=== PATIENT | female | born 1960 | race Caucasian/White ===

== ENCOUNTER 2020-02-19 12:21 | Inpatient (IN) ==
[2020-02-19] MEDS ORDERED: Ondansetron 4 MG/2 ML VIAL IVP ONE (12:27)
[2020-02-19 12:55] LABS: Basophils % 0.3 %; Eosinophils % 0.3 %; Hematocrit 36.6 % (35.3-44.9); Hemoglobin 12.8 g/dL (11.5-15.4); Immature Granulocytes % 0.3 % (0-4); Lymphocytes # 1.1 K/mcL (0.6-4.6); Lymphocytes % 11.7 %; Mean Corpuscular Hemoglobin 34.3 pg (28.0-33.3); Mean Corpuscular Volume 98.1 fL (83.0-100.0); Mean Platelet Volume 10.6 fL (9.4-12.4); Monocytes # 0.6 K/mcL (0.0-1.3); Monocytes % 6.6 %; Neutrophils # 7.6 K/mcL (1.6-8.9); Platelet Count 181 K/mcL (140-400); Red Blood Count 3.73 M/mcL (3.82-4.97); Red Cell Distribution Width 11.7 % (11.5-14.5); Segmented Neutrophils % 80.8 %; White Blood Count 9.4 K/mcL (4.3-11.1)
[2020-02-19 13:19] LABS: BUN/Creatinine Ratio 8 (6-26); Blood Urea Nitrogen 3 mg/dL (6-20); Calcium 8.4 mg/dL (8.6-10.3); Carbon Dioxide 24 mEq/L (23-29); Chloride 85 mEq/L (98-107); Glucose 107 mg/dL (70-105); Osmolality,Calculated 241 (280-300); Potassium 4.5 mEq/L (3.5-5.1); Sodium 117 mEq/L (136-145); eGFR For African Americans > 60 (> 60); eGFR For Non-African Americans > 60 (> 60)
[2020-02-19] MEDS ORDERED: *HR* HYDROmorphone (PF) 1 MG/ML SYRINGE IVP ONE (13:46)
[2020-02-19 13:50] LABS: Bilirubin,Urine Negative (Negative); Blood,Urine Negative (Negative); Clarity,Urine Cloudy (Clear); Color,Urine Yellow (Yellow); Glucose,Urine (UA) Normal (Normal); Ketones,Urine 15 mg/dL (Negative); Leukocyte Esterase,Urine Negative (Negative); Nitrite,Urine Negative (Negative); Protein,Urine Negative (Neg-Trace); Specific Gravity,Urine 1.009 (1.010-1.025); Urobilinogen,Urine Normal (Normal)
[2020-02-19 13:52] LABS: Bacteria,Urine None Seen per hpf (None-Few); Hyaline Casts,Urine None Seen per lpf (None-Few); RBC,Urine 0-3 per hpf (0-3); Squamous Epithelial Cell,Urine Moderate per lpf (None-Few); WBC,Urine 0-3 per hpf (0-3)
[2020-02-19 14:12] LABS: Sodium, Urine 23.5 mEq/L
[2020-02-19] MEDS ORDERED: Naloxone 0.4 MG/ML INJ IVP PRN (14:24)
[2020-02-19] MEDS ORDERED: Dextrose Gel 15 GM/37.5 ML TUBE PO PRN ×2 (14:28)
[2020-02-19] MEDS ORDERED: D5% in Water 1,000 ML IVC PRN (14:28)
[2020-02-19] MEDS ORDERED: *HR* Dextrose 50 % in Water (Syg) 50 ML SYRINGE IVP PRN (14:28)
[2020-02-19] MEDS ORDERED: 0.9 % Sodium Chloride 1,000 ML IVC SCH ×2 (14:30→17:10)
[2020-02-19] MEDS ORDERED: Gabapentin 300 MG CAPSULE PO SCH (15:00)
[2020-02-19] MEDS ORDERED: *HR* LORazepam 2 MG/ML VIAL IVP PRN ×2 (15:01)
[2020-02-19 15:36] LABS: Alanine Aminotransferase 32 Units/L (7-52); Albumin 3.9 g/dL (3.5-5.7); Albumin/Globulin Ratio 1.8 (1.1-2.2); Alkaline Phosphatase 80 Units/L (34-104); Aspartate Amino Transferase 34 Units/L (13-39); Bilirubin,Direct 0.3 mg/dL (0.0-0.2); Bilirubin,Indirect 0.6 mg/dL (0.0-1.0); Bilirubin,Total 0.9 mg/dL (0.3-1.0); Chol/HDL Ratio 2.6 (0-4.9); Cholesterol 151 mg/dL (< 200); Globulin 2.2 g/dL (2.4-3.5); HDL Cholesterol 58 mg/dL (40-59); LDL Cholesterol,Calculated 73 mg/dL (0-99); Total Protein 6.1 g/dL (6.4-8.9); Triglycerides 100 mg/dL (< 150)
[2020-02-19] MEDS: *HR* LORazepam 2 MG/ML VIAL IVP PRN ×2 (16:12→21:36)
[2020-02-19] MEDS: Ketorolac 30 MG/ML VIAL IVP PRN ×2 (16:12→22:28)
[2020-02-19] MEDS: atenoloL 50 MG TABLET PO SCH (16:18)
[2020-02-19] MEDS: Vitamin B Complex/Vit C/Vit E 1 EACH TABLET PO SCH (16:18)
[2020-02-19] MEDS: Thiamine (B-1) 100 MG TABLET PO SCH (16:18)
[2020-02-19] MEDS: Insulin LISPRO 300 UNITS/3 ML VIAL SQ SCH ×2 (16:43→21:25)
[2020-02-19] MEDS: Nicotine 21 MG PATCH.TD24 TD SCH (16:47)
[2020-02-19] MEDS: *HR* Heparin 5,000 UNIT/ML VIAL SQ SCH (16:47)
[2020-02-19 16:53] LABS: BUN/Creatinine Ratio 10 (6-26); Blood Urea Nitrogen 4 mg/dL (6-20); Calcium 8.6 mg/dL (8.6-10.3); Carbon Dioxide 22 mEq/L (23-29); Chloride 89 mEq/L (98-107); Glucose 113 mg/dL (70-105); Osmolality,Calculated 250 (280-300); Potassium 4.7 mEq/L (3.5-5.1); Sodium 121 mEq/L (136-145); eGFR For African Americans > 60 (> 60); eGFR For Non-African Americans > 60 (> 60)
[2020-02-19] MEDS: Acetaminophen IV 1,000 MG/100 ML INFUS..BTL IVPB SCH (18:45)
[2020-02-19] MEDS ORDERED: ARIPiprazole 2 MG TABLET PO SCH (21:00)
[2020-02-19] MEDS: Gabapentin 300 MG CAPSULE PO SCH (21:36)
[2020-02-19] MEDS: rOPINIRole 0.25 MG TABLET PO SCH (21:36)
[2020-02-20] MEDS: Acetaminophen IV 1,000 MG/100 ML INFUS..BTL IVPB SCH ×4 (00:35→18:12)
[2020-02-20 02:38] LABS: Basophils % 0.4 %; Red Cell Distribution Width 11.8 % (11.5-14.5)
[2020-02-20 02:40] LABS: Eosinophils # 0.1 K/mcL (0.0-0.6); Eosinophils % 1.8 %; Hematocrit 34.7 % (35.3-44.9); Hemoglobin 11.8 g/dL (11.5-15.4); Immature Granulocytes % 0.4 % (0-4); Immature Platelets 8.7 % (1.1-6.1); Lymphocytes # 1.5 K/mcL (0.6-4.6); Lymphocytes % 26.7 %; Mean Corpuscular Hemoglobin 33.9 pg (28.0-33.3); Mean Corpuscular Volume 99.7 fL (83.0-100.0); Mean Platelet Volume 10.4 fL (9.4-12.4); Monocytes # 0.4 K/mcL (0.0-1.3); Monocytes % 6.4 %; Neutrophils # 3.6 K/mcL (1.6-8.9); Platelet Count 136 K/mcL (140-400); Red Blood Count 3.48 M/mcL (3.82-4.97); Segmented Neutrophils % 64.3 %; White Blood Count 5.6 K/mcL (4.3-11.1)
[2020-02-20] MEDS ORDERED: MVI, adult with vitamin K 10 ML in 0.9 % Sodium Chloride 1,000 ML IVC ONE (02:46)
[2020-02-20 03:01] LABS: Alanine Aminotransferase 24 Units/L (7-52); Albumin 3.2 g/dL (3.5-5.7); Albumin/Globulin Ratio 1.5 (1.1-2.2); Alkaline Phosphatase 67 Units/L (34-104); Aspartate Amino Transferase 23 Units/L (13-39); BUN/Creatinine Ratio 12 (6-26); Bilirubin,Total 0.8 mg/dL (0.3-1.0); Blood Urea Nitrogen 6 mg/dL (6-20); Carbon Dioxide 22 mEq/L (23-29); Chloride 87 mEq/L (98-107); Globulin 2.1 g/dL (2.4-3.5); Glucose 88 mg/dL (70-105); Magnesium 1.7 mg/dL (1.6-2.6); Osmolality,Calculated 241 (280-300); Phosphorous 3.4 mg/dL (2.7-4.5); Potassium 3.9 mEq/L (3.5-5.1); Sodium 117 mEq/L (136-145); Total Protein 5.3 g/dL (6.4-8.9); eGFR For African Americans > 60 (> 60); eGFR For Non-African Americans > 60 (> 60)
[2020-02-20] MEDS: *HR* Heparin 5,000 UNIT/ML VIAL SQ SCH ×2 (06:05→17:12)
[2020-02-20] MEDS ORDERED: 0.9 % Sodium Chloride 1,000 ML IVC SCH (07:23)
[2020-02-20] MEDS ORDERED: ABILIFY 2 MG PO SCH (09:00)
[2020-02-20] MEDS ORDERED: atenoloL 50 MG TABLET PO SCH (09:00)
[2020-02-20] MEDS: 0.9 % Sodium Chloride 1,000 ML IVC SCH (09:40)
[2020-02-20] MEDS: Ketorolac 30 MG/ML VIAL IVP PRN ×2 (09:41→17:13)
[2020-02-20] MEDS: hydrOXYzine pamoate 25 MG CAPSULE PO SCH (09:42)
[2020-02-20] MEDS: Vitamin B Complex/Vit C/Vit E 1 EACH TABLET PO SCH (09:42)
[2020-02-20] MEDS: atenoloL 50 MG TABLET PO SCH (09:42)
[2020-02-20] MEDS: Nicotine 21 MG PATCH.TD24 TD SCH (09:42)
[2020-02-20] MEDS: Gabapentin 300 MG CAPSULE PO SCH ×2 (09:43→20:50)
[2020-02-20] MEDS: traZODone 50 MG TABLET PO SCH (09:43)
[2020-02-20] MEDS: Thiamine (B-1) 100 MG TABLET PO SCH (09:45)
[2020-02-20] MEDS: Insulin LISPRO 300 UNITS/3 ML VIAL SQ SCH ×4 (09:45→21:00)
[2020-02-20 16:39] LABS: BUN/Creatinine Ratio 15 (6-26); Blood Urea Nitrogen 7 mg/dL (6-20); Calcium 7.7 mg/dL (8.6-10.3); Carbon Dioxide 24 mEq/L (23-29); Chloride 95 mEq/L (98-107); Glucose 105 mg/dL (70-105); Osmolality,Calculated 252 (280-300); Potassium 4.3 mEq/L (3.5-5.1); Sodium 122 mEq/L (136-145); eGFR For African Americans > 60 (> 60); eGFR For Non-African Americans > 60 (> 60)
[2020-02-20] MEDS: rOPINIRole 0.25 MG TABLET PO SCH (20:49)
[2020-02-20] MEDS: *HR* LORazepam 2 MG/ML VIAL IVP PRN (20:50)
[2020-02-20 21:21] LABS: BUN/Creatinine Ratio 14 (6-26); Blood Urea Nitrogen 8 mg/dL (6-20); Calcium 7.9 mg/dL (8.6-10.3); Carbon Dioxide 22 mEq/L (23-29); Chloride 96 mEq/L (98-107); Glucose 109 mg/dL (70-105); Osmolality,Calculated 255 (280-300); Potassium 4.3 mEq/L (3.5-5.1); Sodium 123 mEq/L (136-145); eGFR For African Americans > 60 (> 60); eGFR For Non-African Americans > 60 (> 60)
[2020-02-21 02:52] LABS: Basophils % 0.4 %; Eosinophils # 0.1 K/mcL (0.0-0.6); Eosinophils % 1.7 %; Hematocrit 36.1 % (35.3-44.9); Hemoglobin 11.9 g/dL (11.5-15.4); Immature Granulocytes % 0.4 % (0-4); Lymphocytes % 22.1 %; Mean Corpuscular Hemoglobin 33.8 pg (28.0-33.3); Mean Corpuscular Volume 102.6 fL (83.0-100.0); Mean Platelet Volume 10.8 fL (9.4-12.4); Monocytes # 0.3 K/mcL (0.0-1.3); Monocytes % 6.2 %; Neutrophils # 3.3 K/mcL (1.6-8.9); Platelet Count 130 K/mcL (140-400); Red Blood Count 3.52 M/mcL (3.82-4.97); Segmented Neutrophils % 69.2 %; White Blood Count 4.7 K/mcL (4.3-11.1)
[2020-02-21 03:10] LABS: BUN/Creatinine Ratio 14 (6-26); Blood Urea Nitrogen 6 mg/dL (6-20); Calcium 7.9 mg/dL (8.6-10.3); Carbon Dioxide 21 mEq/L (23-29); Chloride 100 mEq/L (98-107); Glucose 90 mg/dL (70-105); Magnesium 1.8 mg/dL (1.6-2.6); Osmolality,Calculated 263 (280-300); Phosphorous 2.9 mg/dL (2.7-4.5); Sodium 128 mEq/L (136-145); eGFR For African Americans > 60 (> 60); eGFR For Non-African Americans > 60 (> 60)
[2020-02-21] MEDS: *HR* Heparin 5,000 UNIT/ML VIAL SQ SCH (06:17)
[2020-02-21] MEDS: 0.9 % Sodium Chloride 1,000 ML IVC SCH (06:18)
[2020-02-21] MEDS: Insulin LISPRO 300 UNITS/3 ML VIAL SQ SCH ×3 (07:44→23:31)
[2020-02-21] MEDS: Gabapentin 300 MG CAPSULE PO SCH ×2 (07:57→23:35)
[2020-02-21] MEDS: Nicotine 21 MG PATCH.TD24 TD SCH (07:57)
[2020-02-21] MEDS: *HR* LORazepam 2 MG/ML VIAL IVP PRN (07:57)
[2020-02-21] MEDS: Vitamin B Complex/Vit C/Vit E 1 EACH TABLET PO SCH (08:02)
[2020-02-21] MEDS: atenoloL 50 MG TABLET PO SCH (08:02)
[2020-02-21] MEDS: Thiamine (B-1) 100 MG TABLET PO SCH (08:05)
[2020-02-21] MEDS: traZODone 50 MG TABLET PO SCH (08:05)
[2020-02-21] MEDS: hydrOXYzine pamoate 25 MG CAPSULE PO SCH (08:05)
[2020-02-21] MEDS ORDERED: lisinopriL 5 MG TABLET PO SCH (09:00)
[2020-02-21] MEDS: Ketorolac 30 MG/ML VIAL IVP PRN ×2 (09:45→15:46)
[2020-02-21] MEDS ORDERED: Acetaminophen 325 MG TABLET PO PRN (10:17)
[2020-02-21 16:28] LABS: Hematocrit 32.8 % (35.3-44.9); Hemoglobin 10.9 g/dL (11.5-15.4)
[2020-02-21] MEDS ORDERED: *HR* FentaNYL (PF) 100 MCG/2 ML VIAL ONE (17:42)
[2020-02-21] MEDS ORDERED: Lidocaine -MPF 2% 2 ML VIAL ONE (17:43)
[2020-02-21] MEDS ORDERED: Dexamethasone 4 MG/ML VIAL ONE (17:43)
[2020-02-21] MEDS ORDERED: Ondansetron 4 MG/2 ML VIAL ONE (17:43)
[2020-02-21] MEDS ORDERED: *HR* Propofol 200 MG/20 ML VIAL IVP ONE (17:43)
[2020-02-21] MEDS ORDERED: *HR* PHENYLEPHRINE 1,000 MCG/10 ML SYRINGE IVP ONE (18:31)
[2020-02-21] MEDS ORDERED: *HR* OxyCODONE Immed Rel 5 MG TABLET PO PRN (19:42)
[2020-02-21] MEDS ORDERED: Ondansetron 4 MG/2 ML VIAL IVP ONE (19:42)
[2020-02-21] MEDS: *HR* HYDROmorphone PF 0.5 MG/0.5 ML SYRINGE IVP PRN ×2 (19:51→19:58)
[2020-02-21] MEDS ORDERED: *HR* LORazepam 2 MG/ML VIAL IVP PRN ×3 (20:32)
[2020-02-21] MEDS ORDERED: *HR* Dextrose 50 % in Water (Syg) 50 ML SYRINGE IVP PRN (20:32)
[2020-02-21] MEDS ORDERED: D5% in Water 1,000 ML IVC PRN (20:32)
[2020-02-21] MEDS ORDERED: Naloxone 0.4 MG/ML INJ IVP PRN (20:32)
[2020-02-21] MEDS ORDERED: Dextrose Gel 15 GM/37.5 ML TUBE PO PRN ×2 (20:32)
[2020-02-21] MEDS ORDERED: 0.9 % Sodium Chloride 1,000 ML IVC SCH (22:15)
[2020-02-21] MEDS: rOPINIRole 0.25 MG TABLET PO SCH (23:34)
[2020-02-21] MEDS: CeFAZolin 2 GM/120 ML BAG IVPB SCH (23:38)
[2020-02-22] MEDS: Ketorolac 30 MG/ML VIAL IVP PRN ×2 (03:19→11:03)
[2020-02-22] MEDS: Acetaminophen 325 MG TABLET PO PRN ×2 (05:40→16:45)
[2020-02-22] MEDS: Thiamine (B-1) 100 MG TABLET PO SCH (07:39)
[2020-02-22] MEDS: Vitamin B Complex/Vit C/Vit E 1 EACH TABLET PO SCH (07:39)
[2020-02-22] MEDS: Gabapentin 300 MG CAPSULE PO SCH ×2 (07:39→23:57)
[2020-02-22] MEDS: atenoloL 50 MG TABLET PO SCH (07:40)
[2020-02-22] MEDS: hydrOXYzine pamoate 25 MG CAPSULE PO SCH (07:40)
[2020-02-22] MEDS ORDERED: *HR* OxyCODONE/APAP 5/325 TABLET PO PRN (08:41)
[2020-02-22] MEDS ORDERED: lisinopriL 5 MG TABLET PO SCH (09:00)
[2020-02-22] MEDS ORDERED: traZODone 50 MG TABLET PO SCH (09:00)
[2020-02-22 09:11] LABS: Hematocrit 31.9 % (35.3-44.9); Mean Corpuscular HGB Conc 32.3 g/dL (31.6-35.5); Mean Corpuscular Hemoglobin 34.1 pg (28.0-33.3); Mean Corpuscular Volume 105.6 fL (83.0-100.0); Mean Platelet Volume 10.6 fL (9.4-12.4); Platelet Count 153 K/mcL (140-400); Red Blood Count 3.02 M/mcL (3.82-4.97); Red Cell Distribution Width 12.1 % (11.5-14.5)
[2020-02-22 09:13] LABS: Hemoglobin 10.3 g/dL (11.5-15.4); White Blood Count 7.3 K/mcL (4.3-11.1)
[2020-02-22] MEDS: *HR* OxyCODONE/APAP 5/325 TABLET PO PRN ×2 (09:13→23:58)
[2020-02-22] MEDS: CeFAZolin 2 GM/120 ML BAG IVPB SCH (09:13)
[2020-02-22] MEDS: Nicotine 21 MG PATCH.TD24 TD SCH (09:15)
[2020-02-22] MEDS: Insulin LISPRO 300 UNITS/3 ML VIAL SQ SCH ×4 (09:15→23:58)
[2020-02-22 09:29] LABS: BUN/Creatinine Ratio 13 (6-26); Blood Urea Nitrogen 6 mg/dL (6-20); Calcium 8.2 mg/dL (8.6-10.3); Carbon Dioxide 21 mEq/L (23-29); Chloride 99 mEq/L (98-107); Glucose 176 mg/dL (70-105); Osmolality,Calculated 264 (280-300); Potassium 4.3 mEq/L (3.5-5.1); Sodium 126 mEq/L (136-145); eGFR For African Americans > 60 (> 60); eGFR For Non-African Americans > 60 (> 60)
[2020-02-22] MEDS ORDERED: Tolvaptan 15 MG TABLET PO ONE (10:28)
[2020-02-22] MEDS: Aspirin Enteric Coated 81 MG Tablet PO SCH (17:24)
[2020-02-22 22:35] LABS: Bacteria,Urine Few per hpf (None-Few); Bilirubin,Urine Negative (Negative); Blood,Urine Small (Negative); Clarity,Urine Clear (Clear); Color,Urine Light-Yellow (Yellow); Glucose,Urine (UA) Normal (Normal); Ketones,Urine Negative (Negative); Leukocyte Esterase,Urine Trace (Negative); Nitrite,Urine Negative (Negative); Protein,Urine Negative (Neg-Trace); RBC,Urine 0-3 per hpf (0-3); Specific Gravity,Urine 1.006 (1.010-1.025); Squamous Epithelial Cell,Urine Few per hpf (None-Few); WBC,Urine 0-3 per hpf (0-3)
[2020-02-22] MEDS: rOPINIRole 0.25 MG TABLET PO SCH (23:58)
[2020-02-23 00:59] LABS: Hematocrit 30.6 % (35.3-44.9); Mean Corpuscular HGB Conc 32.7 g/dL (31.6-35.5); Mean Corpuscular Hemoglobin 33.7 pg (28.0-33.3); Platelet Count 154 K/mcL (140-400); Red Blood Count 2.97 M/mcL (3.82-4.97); Red Cell Distribution Width 12.4 % (11.5-14.5)
[2020-02-23 01:10] LABS: BUN/Creatinine Ratio 16 (6-26); Blood Urea Nitrogen 7 mg/dL (6-20); Calcium 8.3 mg/dL (8.6-10.3); Carbon Dioxide 21 mEq/L (23-29); Chloride 106 mEq/L (98-107); Glucose 122 mg/dL (70-105); Osmolality,Calculated 277 (280-300); Potassium 4.6 mEq/L (3.5-5.1); Sodium 134 mEq/L (136-145); eGFR For African Americans > 60 (> 60); eGFR For Non-African Americans > 60 (> 60)
[2020-02-23] MEDS: Insulin LISPRO 300 UNITS/3 ML VIAL SQ SCH ×4 (07:34→23:56)
[2020-02-23] MEDS: Aspirin Enteric Coated 81 MG Tablet PO SCH (08:29)
[2020-02-23] MEDS: Thiamine (B-1) 100 MG TABLET PO SCH (08:29)
[2020-02-23] MEDS: Vitamin B Complex/Vit C/Vit E 1 EACH TABLET PO SCH (08:30)
[2020-02-23] MEDS: Gabapentin 300 MG CAPSULE PO SCH ×2 (08:30→20:54)
[2020-02-23] MEDS: atenoloL 50 MG TABLET PO SCH (08:30)
[2020-02-23] MEDS: hydrOXYzine pamoate 25 MG CAPSULE PO SCH (08:30)
[2020-02-23] MEDS: Nicotine 21 MG PATCH.TD24 TD SCH (08:30)
[2020-02-23] MEDS: *HR* OxyCODONE/APAP 5/325 TABLET PO PRN ×2 (08:37→18:47)
[2020-02-23] MEDS: rOPINIRole 0.25 MG TABLET PO SCH (20:54)
[2020-02-24] MEDS: *HR* OxyCODONE/APAP 5/325 TABLET PO PRN ×4 (00:45→19:26)
[2020-02-24 01:45] LABS: Hemoglobin 9.9 g/dL (11.5-15.4); Mean Corpuscular HGB Conc 31.9 g/dL (31.6-35.5); Mean Corpuscular Hemoglobin 33.8 pg (28.0-33.3); Mean Corpuscular Volume 105.8 fL (83.0-100.0); Mean Platelet Volume 10.4 fL (9.4-12.4); Platelet Count 169 K/mcL (140-400); Red Blood Count 2.93 M/mcL (3.82-4.97); Red Cell Distribution Width 12.7 % (11.5-14.5); White Blood Count 5.6 K/mcL (4.3-11.1)
[2020-02-24 02:04] LABS: BUN/Creatinine Ratio 18 (6-26); Blood Urea Nitrogen 8 mg/dL (6-20); Calcium 8.4 mg/dL (8.6-10.3); Carbon Dioxide 26 mEq/L (23-29); Chloride 102 mEq/L (98-107); Glucose 109 mg/dL (70-105); Osmolality,Calculated 277 (280-300); Sodium 134 mEq/L (136-145); eGFR For African Americans > 60 (> 60); eGFR For Non-African Americans > 60 (> 60)
[2020-02-24] MEDS: Insulin LISPRO 300 UNITS/3 ML VIAL SQ SCH ×4 (08:08→20:10)
[2020-02-24] MEDS: Aspirin Enteric Coated 81 MG Tablet PO SCH (08:12)
[2020-02-24] MEDS: Thiamine (B-1) 100 MG TABLET PO SCH (08:12)
[2020-02-24] MEDS: Vitamin B Complex/Vit C/Vit E 1 EACH TABLET PO SCH (08:12)
[2020-02-24] MEDS: Gabapentin 300 MG CAPSULE PO SCH ×2 (08:13→20:13)
[2020-02-24] MEDS: hydrOXYzine pamoate 25 MG CAPSULE PO SCH (08:13)
[2020-02-24] MEDS: Nicotine 21 MG PATCH.TD24 TD SCH (08:13)
[2020-02-24] MEDS: atenoloL 50 MG TABLET PO SCH (08:13)
[2020-02-24] MEDS: Acetaminophen 325 MG TABLET PO PRN (10:03)
[2020-02-24] MEDS: rOPINIRole 0.25 MG TABLET PO SCH (20:13)
[2020-02-24] MEDS ORDERED: Melatonin 3 MG TABLET PO ONE (23:13)
[2020-02-25] MEDS: *HR* OxyCODONE/APAP 5/325 TABLET PO PRN ×4 (02:41→23:35)
[2020-02-25 03:20] LABS: Hematocrit 31.9 % (35.3-44.9); Hemoglobin 10.3 g/dL (11.5-15.4); Mean Corpuscular HGB Conc 32.3 g/dL (31.6-35.5); Mean Corpuscular Hemoglobin 33.4 pg (28.0-33.3); Mean Corpuscular Volume 103.6 fL (83.0-100.0); Mean Platelet Volume 10.4 fL (9.4-12.4); Platelet Count 195 K/mcL (140-400); Red Blood Count 3.08 M/mcL (3.82-4.97); Red Cell Distribution Width 12.5 % (11.5-14.5); White Blood Count 5.9 K/mcL (4.3-11.1)
[2020-02-25 03:36] LABS: BUN/Creatinine Ratio 12 (6-26); Blood Urea Nitrogen 5 mg/dL (6-20); Calcium 8.4 mg/dL (8.6-10.3); Carbon Dioxide 28 mEq/L (23-29); Chloride 97 mEq/L (98-107); Glucose 94 mg/dL (70-105); Osmolality,Calculated 271 (280-300); Sodium 132 mEq/L (136-145); eGFR For African Americans > 60 (> 60); eGFR For Non-African Americans > 60 (> 60)
[2020-02-25] MEDS: Insulin LISPRO 300 UNITS/3 ML VIAL SQ SCH ×4 (07:52→20:20)
[2020-02-25] MEDS: hydrOXYzine pamoate 25 MG CAPSULE PO SCH (07:58)
[2020-02-25] MEDS: Aspirin Enteric Coated 81 MG Tablet PO SCH (07:58)
[2020-02-25] MEDS: Nicotine 21 MG PATCH.TD24 TD SCH (07:58)
[2020-02-25] MEDS: Gabapentin 300 MG CAPSULE PO SCH ×2 (07:58→20:24)
[2020-02-25] MEDS: Thiamine (B-1) 100 MG TABLET PO SCH (07:58)
[2020-02-25] MEDS: atenoloL 50 MG TABLET PO SCH (07:59)
[2020-02-25] MEDS: Vitamin B Complex/Vit C/Vit E 1 EACH TABLET PO SCH (07:59)
[2020-02-25] MEDS: lisinopriL 5 MG TABLET PO SCH (07:59)
[2020-02-25 11:07] LABS: Bacteria,Urine Few per hpf (None-Few); Bilirubin,Urine Negative (Negative); Blood,Urine Negative (Negative); Clarity,Urine Turbid (Clear); Color,Urine Yellow (Yellow); Glucose,Urine (UA) Normal (Normal); Ketones,Urine Negative (Negative); Leukocyte Esterase,Urine Large (Negative); Mucus,Urine Few per lpf (None-Few); Nitrite,Urine Positive (Negative); PH,Urine 7.5 pH Units (5.0-8.0); Protein,Urine Negative (Neg-Trace); Specific Gravity,Urine 1.012 (1.010-1.025); Squamous Epithelial Cell,Urine Few per hpf (None-Few); WBC,Urine 50-100 per hpf (0-3)
[2020-02-25] MEDS: Acetaminophen 325 MG TABLET PO PRN ×2 (13:47→20:24)
[2020-02-25] MEDS ORDERED: cefTRIAXone 2,000 MG in Water for inj. (sterile) 20 ML IVP SCH (14:00)
[2020-02-25] MEDS: cefTRIAXone 1,000 MG in Water for inj. (sterile) 10 ML IVP SCH (14:32)
[2020-02-25] MEDS: rOPINIRole 0.25 MG TABLET PO SCH (20:23)
[2020-02-26] MEDS: Acetaminophen 325 MG TABLET PO PRN (04:35)
[2020-02-26 05:12] LABS: Hematocrit 36.6 % (35.3-44.9); Hemoglobin 11.7 g/dL (11.5-15.4); Mean Corpuscular Hemoglobin 33.4 pg (28.0-33.3); Mean Corpuscular Volume 104.6 fL (83.0-100.0); Mean Platelet Volume 10.5 fL (9.4-12.4); Platelet Count 249 K/mcL (140-400); Red Cell Distribution Width 12.6 % (11.5-14.5); White Blood Count 6.1 K/mcL (4.3-11.1)
[2020-02-26 05:29] LABS: BUN/Creatinine Ratio 12 (6-26); Blood Urea Nitrogen 6 mg/dL (6-20); Calcium 8.8 mg/dL (8.6-10.3); Carbon Dioxide 26 mEq/L (23-29); Chloride 98 mEq/L (98-107); Glucose 91 mg/dL (70-105); Osmolality,Calculated 267 (280-300); Potassium 4.3 mEq/L (3.5-5.1); Sodium 130 mEq/L (136-145); eGFR For African Americans > 60 (> 60); eGFR For Non-African Americans > 60 (> 60)
[2020-02-26] MEDS: Insulin LISPRO 300 UNITS/3 ML VIAL SQ SCH (07:51)
[2020-02-26] MEDS: cefTRIAXone 1,000 MG in Water for inj. (sterile) 10 ML IVP SCH (07:58)
[2020-02-26] MEDS: atenoloL 50 MG TABLET PO SCH (08:01)
[2020-02-26] MEDS: *HR* OxyCODONE/APAP 5/325 TABLET PO PRN (08:02)
[2020-02-26] MEDS: Aspirin Enteric Coated 81 MG Tablet PO SCH (08:02)
[2020-02-26] MEDS: Gabapentin 300 MG CAPSULE PO SCH (08:02)
[2020-02-26] MEDS: hydrOXYzine pamoate 25 MG CAPSULE PO SCH (08:03)
[2020-02-26] MEDS: lisinopriL 5 MG TABLET PO SCH (08:03)
[2020-02-26] MEDS: Thiamine (B-1) 100 MG TABLET PO SCH (08:03)
[2020-02-26] MEDS: Vitamin B Complex/Vit C/Vit E 1 EACH TABLET PO SCH (08:04)
[2020-02-26] MEDS: Nicotine 21 MG PATCH.TD24 TD SCH (08:04)
[2020-02-26] MEDS ORDERED: Nitrofurantoin (BID) 100 MG CAPSULE PO SCH (08:15)
[2020-02-26] MEDS ORDERED: Sulfamethoxazole/Trimeth DS 1 EACH TABLET PO SCH (09:00)
[2020-02-26 10:37] VITALS: BP 102/60
== END 2020-02-26 11:30 | disposition home health service (06) | DRG 481 ==
LOC: EMEROOARM 12:21 → 2NNU 12:21 → SUATTDRO 15:12 → 2NNU 15:48 → SUATTDRO 02-20 10:27 → 3NENU 02-21 20:28
PROVIDERS: ADMIT Internal Medicine; ATTEND Family Medicine